=== PATIENT | female | born 1980 | race Caucasian/White ===

== ENCOUNTER 2017-06-03 10:26 | Emergency (ER) | payer OTHER ==
[~2017-06-03] VITALS: Ht 175.3 cm; Wt 113.4 kg
[~2017-06-03 10:26] MED LIST: DOXYCYCLINE 10100 MG PO; NAPROSYN500 MG PO; NOHOMEMEDICATIONS; NORCO 5-325 TA1 EACH PO; REGLAN 10 MG TA10 MG PO; TESSALON PERLE100 MG PO; ULTRAM 50MG TAB50 MG PO; VENTOLIN HFA 1818 GM INH
[2017-06-03 10:27] VITALS: BP 169/118
[2017-06-03] MEDS ORDERED: PENICILLIN VK500 M1 PO (10:45)
[2017-06-03] MEDS ORDERED: NORCO 5-325 TA1 EACH PO (10:45)
== END 2017-06-03 10:45 | disposition home or self-care (01) ==
LOC: ER 10:26
DX: K04.7 Periapical abscess without sinus (principal); F17.210 Nicotine dependence, cigarettes, uncomplicated; F10.99 Alcohol use, unspecified with unspecified alcohol-induced disorder; Z98.890 Other specified postprocedural states